=== PATIENT | female | born 1990 | race Caucasian/White ===

== ENCOUNTER → 2022-02-10 | Outpatient (CLI) | payer OTHER ==
[2022-02-10 16:29] LABS: Source, Urine Clean Catch
[2022-02-10 18:08] LABS: Bacteria Many /hpf; Red Blood Cells, Urine 0-2 /hpf (0-2); Squamous Epithelial Cells Rare /hpf (Few); White Blood Cells, Urine 0-2 /hpf (0-5)
[2022-02-10 18:09] LABS: Amorphous Heavy (0-Heavy); Mucus Mod (0-Heavy)
[2022-02-10 18:17] LABS: U Amphetamine Screen DETECTED; U Barbituate Screen Not Detected; U Benzodiazapine Screen Not Detected; U Buprenorphine Screen Not Detected; U Cannabinoids Screen DETECTED; U Cocaine Screen Not Detected; U Methadone Screen Not Detected; U Methamphetamine Screen DETECTED; U Opiates Screen Not Detected; U Oxycodone Screen Not Detected; U Phencyclidine Screen Not Detected; U Propoxyphene Screen Not Detected
== END | disposition home or self-care (01) ==
LOC: LAB 14:15 → LAB SHORT 14:15
PROVIDERS: Advanced Practice Midwife
DX: Z34.81 Encounter for supervision of other normal pregnancy, first trimester (principal)
CPT/HCPCS: 81015; 87077; 87086; 87186

== ENCOUNTER 2022-09-17 11:58 | Emergency (ER) | payer OTHER ==
[~2022-09-17] VITALS: Ht 175.3 cm; Wt 129.3 kg
[2022-09-17 12:32] LABS: Source, Urine Clean Catch
[2022-09-17 12:57] LABS: Appearance, Urine Hazy (Clear); Bilirubin, Urine Neg (Neg); Blood, Urine 3+ (Neg); Color, Urine Yellow (P-Yellow); Glucose Qualitative, Urine Neg (Neg); Ketones, Urine Neg (Neg); Leukocyte Esterase, Urine 2+ (Neg); Nitrite, Urine Neg (Neg); Protein, Urine 3+ (Neg); Specific Gravity, Urine 1.015 (1.003-1.022); Urobilinogen, Urine NORM (Normal); pH, Urine 6.5 (5.0-8.0)
[2022-09-17 13:27] LABS: Bacteria Many /hpf; Red Blood Cells, Urine 0-2 /hpf (0-2); Squamous Epithelial Cells Many /hpf (Few)
[2022-09-17 13:30] LABS: Mucus Mod (0-Heavy)
[2022-09-17 14:44] LABS: BASOPHILS ABSOLUTE AUTO 0.04 K/mm3 (0.00-0.23); BASOPHILS PERCENT AUTO 0 % (0-2); EOSINOPHILS PERCENT AUTO 1 % (0-6); Hematocrit 35.4 % (33.0-51.0); Hemoglobin 11.3 g/dL (11.5-16.0); IMMATURE GRAN ABSOLUTE AUTO 0.04 K/mm3 (0.00-0.10); IMMATURE GRAN PERCENT AUTO 0 % (0-1); LYMPHOCYTES ABSOLUTE AUTO 1.94 K/mm3 (0.84-5.20); LYMPHOCYTES PERCENT AUTO 20 % (21-46); MONOCYTES ABSOLUTE AUTO 0.85 K/mm3 (0.16-1.47); MONOCYTES PERCENT AUTO 9 % (4-13); Mean Corpuscular HGB 25.5 pg (26.0-34.0); Mean Corpuscular HGB Conc 31.9 g/dL (31.5-36.5); Mean Corpuscular Volume 80 fL (80-100); Mean Platelet Volume 8.8 fL (9.1-12.4); NEUTROPHILS ABSOLUTE AUTO 6.65 K/mm3 (1.96-9.15); NEUTROPHILS PERCENT AUTO 69 % (41-73); Platelet Count 296 K/mm3 (150-400); RDW Coefficient Variation 16.2 % (11.7-14.2); RDW Standard Deviation 46.5 fL (35.1-46.3); Red Blood Cell Count 4.43 M/mm3 (3.80-5.20); White Blood Cell Count 9.62 K/mm3 (4.00-11.30)
[2022-09-17 15:03] LABS: Albumin, Blood 2.4 g/dL (3.4-5.0); Albumin/Globulin Ratio 0.6 (0.8-1.8); Bilirubin, Total 0.3 mg/dL (0.1-1.0); Bun/Creatinine Ratio 20.9 (12.0-20.0); Calcium, Blood 8.7 mg/dL (8.5-10.1); Creatinine, Blood 0.53 mg/dL (0.40-1.00); Globulin, Blood 4.3 g/dL (2.2-4.0); Total Protein, Blood 6.7 g/dL (6.4-8.2)
[2022-09-17 16:30] VITALS: BP 161/85
== END 2022-09-17 16:45 | disposition other institution (70) ==
LOC: ER 11:58
PROVIDERS: Emergency Medicine; Physician Assistant
DX: O99.891 Other specified diseases and conditions complicating pregnancy (principal); R10.30 Lower abdominal pain, unspecified; O99.513 Diseases of the respiratory system complicating pregnancy, third trimester; J45.909 Unspecified asthma, uncomplicated; O99.333 Smoking (tobacco) complicating pregnancy, third trimester; F17.200 Nicotine dependence, unspecified, uncomplicated; Z3A.37 37 weeks gestation of pregnancy
CPT/HCPCS: 36415; 76815; 80053; 81001; 81025; 84702; 85025; 87086; 99285-25; A9270

== ENCOUNTER 2022-09-17 16:56 | Inpatient (IN) | payer OTHER ==
[~2022-09-17] VITALS: Ht 175.3 cm; Wt 152.4 kg
[2022-09-17] VITALS (32 sets, daily range): BP systolic 114–205; BP diastolic 70–124
[2022-09-17 18:03] LABS: BASOPHILS ABSOLUTE AUTO 0.03 K/mm3 (0.00-0.23); BASOPHILS PERCENT AUTO 0 % (0-2); EOSINOPHILS ABSOLUTE AUTO 0.09 K/mm3 (0.00-0.68); EOSINOPHILS PERCENT AUTO 1 % (0-6); Hematocrit 34.1 % (33.0-51.0); IMMATURE GRAN ABSOLUTE AUTO 0.04 K/mm3 (0.00-0.10); IMMATURE GRAN PERCENT AUTO 0 % (0-1); LYMPHOCYTES ABSOLUTE AUTO 2.48 K/mm3 (0.84-5.20); LYMPHOCYTES PERCENT AUTO 26 % (21-46); MONOCYTES PERCENT AUTO 6 % (4-13); Mean Corpuscular HGB 25.6 pg (26.0-34.0); Mean Corpuscular HGB Conc 32.3 g/dL (31.5-36.5); Mean Corpuscular Volume 79 fL (80-100); Mean Platelet Volume 8.9 fL (9.1-12.4); NEUTROPHILS ABSOLUTE AUTO 6.18 K/mm3 (1.96-9.15); NEUTROPHILS PERCENT AUTO 66 % (41-73); Platelet Count 288 K/mm3 (150-400); RDW Coefficient Variation 16.3 % (11.7-14.2); RDW Standard Deviation 46.6 fL (35.1-46.3); White Blood Cell Count 9.42 K/mm3 (4.00-11.30)
[2022-09-17 18:18] LABS: Creatinine, Urine Random 64.6 mg/dL (27.00-270.00); Protein, Urine Random 48.6 mg/dL (0.0-11.9); Protein/Creat Ratio, Ur Random 0.8
[2022-09-17 18:44] LABS: U Amphetamine Screen DETECTED; U Barbituate Screen Not Detected; U Benzodiazapine Screen Not Detected; U Buprenorphine Screen Not Detected; U Cannabinoids Screen Not Detected; U Cocaine Screen Not Detected; U Methadone Screen Not Detected; U Methamphetamine Screen DETECTED; U Opiates Screen Not Detected; U Oxycodone Screen Not Detected; U Phencyclidine Screen Not Detected; U Propoxyphene Screen Not Detected
--- NOTE | 2022-09-17 21:58 | NUR ---
MAGNESIUM SULFATE 2GM/HR IV STARTED AT 2157, DOUBLE CHECKED BY KARLA Jones RN
[2022-09-18] VITALS (59 sets, daily range): BP systolic 71–152; BP diastolic 43–86
--- NOTE | 2022-09-18 05:08 | NUR ---
REMOVED 20G PERIPHERAL IV FROM LEFT HAND. IV WAS PLACED BY MANAGER TRAINING IN OR AND NOT DOCUMENTED. IV SITE IS NO LONGER NEEDED. CATHETER TIP INTACT.
--- NOTE | 2022-09-18 05:09 | NUR ---
18G PERIPHERAL IV IN RIGHT AC. PLACEMENT NOT DOCUMENTED, UNSURE OF WHO PLACED THIS IV.
[2022-09-18 05:20] LABS: BASOPHILS ABSOLUTE AUTO 0.03 K/mm3 (0.00-0.23); BASOPHILS PERCENT AUTO 0 % (0-2); EOSINOPHILS ABSOLUTE AUTO 0.06 K/mm3 (0.00-0.68); EOSINOPHILS PERCENT AUTO 1 % (0-6); Hematocrit 29.3 % (33.0-51.0); Hemoglobin 9.3 g/dL (11.5-16.0); IMMATURE GRAN ABSOLUTE AUTO 0.05 K/mm3 (0.00-0.10); IMMATURE GRAN PERCENT AUTO 0 % (0-1); LYMPHOCYTES ABSOLUTE AUTO 2.06 K/mm3 (0.84-5.20); LYMPHOCYTES PERCENT AUTO 17 % (21-46); MONOCYTES ABSOLUTE AUTO 0.85 K/mm3 (0.16-1.47); MONOCYTES PERCENT AUTO 7 % (4-13); Mean Corpuscular HGB 25.4 pg (26.0-34.0); Mean Corpuscular HGB Conc 31.7 g/dL (31.5-36.5); Mean Corpuscular Volume 80 fL (80-100); Mean Platelet Volume 9.1 fL (9.1-12.4); NEUTROPHILS ABSOLUTE AUTO 9.18 K/mm3 (1.96-9.15); NEUTROPHILS PERCENT AUTO 75 % (41-73); Platelet Count 249 K/mm3 (150-400); RDW Coefficient Variation 16.4 % (11.7-14.2); RDW Standard Deviation 46.7 fL (35.1-46.3); Red Blood Cell Count 3.66 M/mm3 (3.80-5.20); White Blood Cell Count 12.23 K/mm3 (4.00-11.30)
--- NOTE | 2022-09-18 22:11 | NUR ---
24 HOUR POST OPERATIVE MAGNESIUM INF ORDER COMPLETE. IV MAGNESIUM TURNED OFF ON 09/18 AT 2200. PT SLEEPY BUT AROUSABLE, DENIES SOB, VISION CHANGES, HEADACHE, UPPER GASTRIC PAIN. PT DENIES GENERALIZED PAIN AT THIS TIME. PT WOULD LIKE TO GET UP TONIGHT AND GO VISIT BABY IN NURSERY.
[2022-09-19] VITALS (9 sets, daily range): BP systolic 114–134; BP diastolic 58–78
--- NOTE | 2022-09-19 06:52 | NUR ---
PT IS A&O X4. PT WAS PLEASANT AND ACCEPTING OF CARE THROUGHOUT SHIFT. HANSA GOODE AT 2330. PT GOT UP TWO TIMES DURING SHIFT: TO SHOWER AND VOID. PT PAIN HAS REMAINED UNDER CONTROL DURING SHIFT. PT ASKED ABOUT BABY BOY THROUGHOUT SHIFT AND ORIGINALLY WANTED TO GO SEE HIM IN THE EVENING BUT DECLINED MULITIPLE TIMES DURING SHIFT. PT PLANS TO VISIT AFTER BREAKFAST. LET PT KNOW THAT SHE CAN GO VISIT ANY TIME SHE WOULD LIKE AND STAY LONG SHE WOULD LIKE. TOOK PICTURES OF BABY BOY WITH PT PHONE SO SHE COULD SEE WHAT HE LOOKED LIKE. PT IS STILL WORKING ON A NAME AND WANTS TO DISCUSS WITH FOB WHEN HE COMES IN TODAY. PT HAS NOT HAD ANY VISITORS FOR THIS SHIFT. WILL CONTINUE TO CARE FOR PT UNTIL DAY SHIFT CHANGE OCCURS.
--- NOTE | 2022-09-19 10:52 | NUR ---
MOB DOWN TO SCN
--- NOTE | 2022-09-19 13:34 | NUR ---
MOTHER OF BABY BACK TO SCN TO SEE NB.
--- NOTE | 2022-09-19 19:14 | NUR ---
PT WENT OUTSIDE @ 9692 PT RETURNED TO UNIT AT THIS TIME
--- NOTE | 2022-09-19 19:41 | NUR ---
VISITATION PT AND VISITOR DOWN AT NURSERY GLASS WINDOW TO WATCH BATH. PT OFFERED TO GO INTO NURSERY WITH BUT DECINED, TO STAY IN THE HALLWAY WITH VISITOR.
--- NOTE | 2022-09-19 22:21 | NUR ---
MEDICATION RN ATTEMPTED TO MEDICATE PATIENT WITH MOTRIN AND SIMETHICONE AT THIS TIME, PT ASLEEP AND UNDISTURBED BY RN AT THIS TIME
[2022-09-20 02:06] VITALS: BP 131/63
[2022-09-20 02:10] LABS: HBSAG SCREEN Negative (Negative)
[2022-09-20 03:11] LABS: HIV AB/P24 AG SCREEN Non Reactive (Non Reactive)
[2022-09-20 04:07] VITALS: BP 123/65
--- NOTE | 2022-09-20 08:28 | NUR ---
CPS NOTE KARLA CALLED STATED SAFETY PLAN IS FOR PT AND NB TO DISCHARGE HOME WITH FRIEND WHOM KENNETH HAS BEEN LIVING WITH. WILL BE IN LATER THIS MORNING TO SPEAK WITH PT
[2022-09-20 08:59] VITALS: BP 150/80
--- NOTE | 2022-09-20 11:11 | NUR ---
Spoke with RAKESH Balderas, will be in to speak with pt around 1130.
--- NOTE | 2022-09-20 11:49 | NUR ---
CPS WORKER, KARLA, AT BEDSIDE WITH PATIENT AT THIS TIME.
[2022-09-20] MEDS ORDERED: IBUP800 PO (12:14)
[2022-09-20] MEDS ORDERED: LABE200 PO (12:15)
[2022-09-20] MEDS ORDERED: ACET500 PO (12:15)
[2022-09-20] MEDS ORDERED: OXAYDO5 M7 PO (12:16)
[2022-09-20] MEDS ORDERED: POLYETHYLENE G500 G1 PO (12:16)
--- NOTE | 2022-09-20 12:30 | NUR ---
[employer] representatives here to speak with pt and collect intake paperwork.
--- NOTE | 2022-09-20 12:34 | NUR ---
Discharge Printed d/c instructions reviewed w/pt and safety consultant Adilia. Pt appeared uninterested in teaching and anxious to discharge. Verbalized understanding, denied additional needs. No acute changes t/o shift. Pt d/c'd to boarder status. Pt states she is leaving with Adilia to cupboard builder prescriptions and prepare things for nb at home. states she may be back later this evening.
== END 2022-09-20 12:34 | disposition home or self-care (01) | DRG 787 ==
LOC: OBS 16:56 → BC 17:14 → OBS 17:42 → BC 17:45
PROVIDERS: ADMIT Obstetrics & Gynecology
PROC: 3E0334Z Introduction of Serum, Toxoid and Vaccine into Peripheral Vein, Percutaneous Approach (ICD-10-PCS; 2022-09-17)
PROC: 10D00Z1 Extraction of Products of Conception, Low, Open Approach (ICD-10-PCS; principal; 2022-09-17 18:00)
DX: O34.211 Maternal care for low transverse scar from previous cesarean delivery (principal); O99.324 Drug use complicating childbirth; O14.14 Severe pre-eclampsia complicating childbirth; O77.0 Labor and delivery complicated by meconium in amniotic fluid; O99.334 Smoking (tobacco) complicating childbirth; F17.210 Nicotine dependence, cigarettes, uncomplicated; O99.02 Anemia complicating childbirth; F12.10 Cannabis abuse, uncomplicated; O26.893 Other specified pregnancy related conditions, third trimester; F15.10 Other stimulant abuse, uncomplicated; E66.9 Obesity, unspecified; D64.9 Anemia, unspecified; Z3A.37 37 weeks gestation of pregnancy; Z67.91 Unspecified blood type, Rh negative; Z37.0 Single live birth
CPT/HCPCS: 36415; 59025; 76815; 80053; 81001; 81025; 82570; 84156; 84702; 85025; 85460; 86317; 86592; 86762; 86850; 86900; 86901; 87086; 87340; 87389; 99285-25; A9270; C1751; J0360; J0690; J1650; J1885; J2590; J2765; J2916; J3010; J3475; J7120

== ENCOUNTER 2024-02-15 10:19 | Emergency (ER) | payer OTHER ==
[~2024-02-15] VITALS: Ht 177.8 cm; Wt 117.9 kg
[~2024-02-15 10:19] MED LIST: ACET500 PO; IBUP800 PO; LABE200 PO; OXAYDO5 M7 PO; POLYETHYLENE G500 G1 PO
[2024-02-15 10:20] VITALS: BP 145/95
[2024-02-15 10:54] LABS: BASOPHILS ABSOLUTE AUTO 0.04 K/mm3 (0.00-0.23); BASOPHILS PERCENT AUTO 1 % (0-2); EOSINOPHILS ABSOLUTE AUTO 0.22 K/mm3 (0.00-0.68); EOSINOPHILS PERCENT AUTO 3 % (0-6); Hematocrit 29.8 % (33.0-51.0); Hemoglobin 8.9 g/dL (11.5-16.0); IMMATURE GRAN ABSOLUTE AUTO 0.02 K/mm3 (0.00-0.10); IMMATURE GRAN PERCENT AUTO 0 % (0-1); LYMPHOCYTES ABSOLUTE AUTO 1.75 K/mm3 (0.84-5.20); LYMPHOCYTES PERCENT AUTO 22 % (21-46); MONOCYTES ABSOLUTE AUTO 0.53 K/mm3 (0.16-1.47); MONOCYTES PERCENT AUTO 7 % (4-13); Mean Corpuscular HGB Conc 29.9 g/dL (31.5-36.5); Mean Corpuscular Volume 70 fL (80-100); Mean Platelet Volume 8.2 fL (9.1-12.4); NEUTROPHILS ABSOLUTE AUTO 5.53 K/mm3 (1.96-9.15); NEUTROPHILS PERCENT AUTO 68 % (41-73); Platelet Count 376 K/mm3 (150-400); RDW Coefficient Variation 19.5 % (11.7-14.2); RDW Standard Deviation 48.2 fL (35.1-46.3); Red Blood Cell Count 4.24 M/mm3 (3.80-5.20); White Blood Cell Count 8.09 K/mm3 (4.00-11.30)
[2024-02-15 11:04] LABS: Albumin, Blood 3.5 g/dL (3.4-5.0); Albumin/Globulin Ratio 0.9 (0.8-1.8); Bilirubin, Total 0.5 mg/dL (0.1-1.0); Bun/Creatinine Ratio 22.6 (12.0-20.0); Calcium, Blood 8.6 mg/dL (8.5-10.1); Creatinine, Blood 0.66 mg/dL (0.40-1.00); Globulin, Blood 4.1 g/dL (2.2-4.0); Potassium, Blood 3.8 mmol/L (3.5-5.5); Total Protein, Blood 7.6 g/dL (6.4-8.2)
[2024-02-15 12:16] LABS: Source, Urine Voided
[2024-02-15 12:20] LABS: Appearance, Urine Hazy (Clear); Bilirubin, Urine Neg (Neg); Blood, Urine Neg (Neg); Color, Urine Yellow (P-Yellow); Glucose Qualitative, Urine Neg (Neg); Ketones, Urine Neg (Neg); Leukocyte Esterase, Urine Neg (Neg); Nitrite, Urine Neg (Neg); Protein, Urine 1+ (Neg); Specific Gravity, Urine 1.015 (1.003-1.022); Urobilinogen, Urine NORM (Normal)
[2024-02-15 12:33] LABS: Amorphous Light (0-Heavy); Bacteria Few /hpf; Mucus Light (0-Heavy); Red Blood Cells, Urine 0-2 /hpf (0-2); Squamous Epithelial Cells Few /hpf (Few); White Blood Cells, Urine 0-2 /hpf (0-5)
[2024-02-15 12:47] LABS: Percent Saturation 5.7 % (15.0-50.0)
[2024-02-15 12:56] LABS: U Amphetamine Screen Not Detected; U Barbituate Screen Not Detected; U Benzodiazapine Screen Not Detected; U Buprenorphine Screen Not Detected; U Cannabinoids Screen Not Detected; U Cocaine Screen Not Detected; U Methadone Screen Not Detected; U Methamphetamine Screen DETECTED; U Opiates Screen Not Detected; U Oxycodone Screen Not Detected; U Phencyclidine Screen Not Detected
[2024-02-15 13:16] LABS: IMMATURE RETIC FRACTION 20.7 % (2.3-16.0); RETIC HGB EQUIVALENT 20.5 pg (28.20-36.60); RETICULOCYTE ABSOLUTE 0.0663 M/mm3 (0.0200-0.1100); RETICULOCYTE COUNT PERCENT 1.55 % (0.50-2.50)
[2024-02-15] MEDS ORDERED: Ondansetron HCl 2 MG / ML 2ML Vial IV ONE (13:20)
[2024-02-15] MEDS ORDERED: NS 1,000 ML IV SCH (13:20)
[2024-02-15] MEDS ORDERED: ONDA4ODT MM (14:26)
[2024-02-15] MEDS ORDERED: FERROUS GLUCON324 M2 PO (14:27)
== END 2024-02-15 15:06 | disposition home or self-care (01) ==
LOC: ER 10:19
PROVIDERS: Emergency Medicine
DX: R10.84 Generalized abdominal pain (principal); F15.90 Other stimulant use, unspecified, uncomplicated; D50.9 Iron deficiency anemia, unspecified; J45.909 Unspecified asthma, uncomplicated; Z79.899 Other long term (current) drug therapy
CPT/HCPCS: 74177; 80053; 81001; 81025; 82728; 83540; 83550; 83690; 85025; 85045; 96361; 96374-59; 99284-25; J2405; J7030; Q9967